=== PATIENT | female | born 1960 | race African-American/Black ===

== ENCOUNTER 2019-04-12 05:00 | Inpatient (IN) ==
[2019-04-12] MEDS ORDERED: LACTATED RINGERS 1,000 ML IV ONE (06:25)
[2019-04-12 06:40] LABS: Basophils % 0.3 % (0.0-0.8); Eosinophils % 0.1 % (0.00-10.9); Hemoglobin 9.7 GM/DL (12.0-16.0); Immature Granulocytes % 0.3 %; Immature Granulocytes Absolute 0.03 #; Lymphocytes # 3.8 10*3/uL (1.4-4.0); Mean Corpuscular HGB Conc 34.6 GM/DL (32-36); Mean Corpuscular Volume 88.1 FL (87-102); Mean Platelet Volume 11.6 FL (9.6-12.0); NRBC # 0.02 10*3/uL; Neutrophils % 51.3 % (38.7-73.9); Platelet Count 190 T/CUMM (130-400); Red Blood Count 3.18 MC/CUMM (3.8-5.5); Red Cell Distribution Width 14.1 % (9.3-17.3); White Blood Count 8.8 T/CUMM (4-12)
[2019-04-12 06:59] LABS: Albumin 1.9 G/DL (3.4-5.0); Bilirubin,Total 0.8 MG/DL (0.2-1.0); Calcium 6.3 MG/DL (8.5-10.1); Osmolality,Calculated 258.8 MOS/KG (273-304); Total Protein 6.2 G/DL (6.4-8.3)
[2019-04-12] MEDS ORDERED: POTASSIUM CHLORIDE 20 MEQ/15 ML UDCUP PO ONE ×2 (07:13→09:30)
[2019-04-12 07:16] LABS: Apearance,Urine Slightly Hazy (Clear); Bacteria,Urine Occasional /HPF (Few); Bilirubin,Urine Negative (Negative); Blood, Urine Negative (Negative); Glucose,Urine (UA) Negative (Negative); Hyaline Casts,Urine 1 /LPF (0-3); Ketones,Urine 5 mg/dL (Negative); Nitrite,Urine Negative (Negative); Protein,Urine Negative; RBC,Urine 2 /HPF (0-4); Urine Color Dark yellow (Yellow); Urine Specific Gravity 1.014 (1.001-1.035); Urine Urobilinogen < 2.0 EU/DL (0.2-1.0); WBC,Urine <1 /HPF (0-6)
[2019-04-12] MEDS ORDERED: ONDANSETRON 4 MG/2 ML VIAL IV PRN (08:56)
[2019-04-12] MEDS ORDERED: ACETAMINOPHEN 325 MG TABLET PO PRN (08:56)
[2019-04-12] MEDS ORDERED: MAGNESIUM SULF RIDER 2 GM in PREMIX 1 EACH IV PRN (09:29)
[2019-04-12] MEDS ORDERED: MAGNESIUM SULF RIDER 4 GM in PREMIX 1 EACH IV PRN (09:29)
[2019-04-12] MEDS ORDERED: POTASSIUM CHLORIDE INJ 40 MEQ in LACTATED RINGERS 1,000 ML IV SCH (09:30)
[2019-04-12] MEDS: PANTOPRAZOLE 40 MG TABLET PO SCH (09:40)
[2019-04-12] MEDS: ENOXAPARIN 30 MG/0.3 ML SYRINGE SUBCUT SCH (09:40)
[2019-04-12] MEDS: DOCUSATE SODIUM 100 MG CAPSULE PO SCH ×2 (09:40→20:42)
[2019-04-12 09:45] LABS: Calcium 6.5 MG/DL (8.5-10.1); Osmolality,Calculated 262.5 MOS/KG (273-304)
[2019-04-12] MEDS ORDERED: MAGNESIUM SULF IV ONE (10:00)
[2019-04-12] MEDS ORDERED: SODIUM CHLORIDE 0.9% IV ONE (10:00)
[2019-04-12] MEDS ORDERED: NOREPINEPHRINE 4 MG/4 ML VIAL IV ONE (10:39)
[2019-04-12] MEDS: NOREPINEPHRINE 8 MG in SODIUM CHLORIDE 0.9% 242 ML IV PRN (10:45)
[2019-04-12] MEDS: MORPHINE 4 MG/1 ML VIAL IV PRN (11:20)
[2019-04-12] MEDS ORDERED: SODIUM CHLORIDE 0.9% 1,650 ML IV ONE (11:26)
[2019-04-12] MEDS: POTASSIUM CHLORIDE 20 MEQ/15 ML UDCUP PER TUBE PRN ×3 (12:00→22:24)
[2019-04-12] MEDS: LEVOFLOXACIN INJ 500 MG in PREMIX 1 EACH IV SCH (12:01)
[2019-04-12] MEDS: PIPERACILLIN/TAZOBACTAM 3,375 MG in SODIUM CHLORIDE 0.9% 100 ML IV SCH ×2 (13:07→19:42)
[2019-04-12] MEDS: VANCOMYCIN INJ 750 MG in SODIUM CHLORIDE 0.9% 250 ML IV SCH (13:41)
[2019-04-12] MEDS ORDERED: DEXAMETHASONE 10 MG/1 ML VIAL IV ONE (13:43)
[2019-04-12] MEDS ORDERED: LORazepam 0.5 MG TABLET PO PRN (13:45)
[2019-04-12] MEDS ORDERED: DEXAMETHASONE INJ 10 MG in SODIUM CHLORIDE 0.9% 50 ML IV ONE (14:00)
[2019-04-12 14:48] LABS: Free T4 (Free Thyroxine) < 0.20 NG/DL (0.76-1.46)
[2019-04-12 15:04] LABS: Osmolality,Calculated 266.2 MOS/KG (273-304)
[2019-04-12] MEDS: GABAPENTIN 100 MG CAPSULE PO SCH ×2 (15:14→20:42)
[2019-04-12] MEDS: LACTATED RINGERS 1,000 ML IV SCH (17:13)
[2019-04-12] MEDS: traZODone 50 MG TABLET PO SCH (20:42)
[2019-04-12] MEDS: DOCUSATE/SENNA 50-8.6 MG TABLET PO SCH (20:42)
[2019-04-12] MEDS: LATANOPROST 0.005% OPH SOLN 2.5 ML BOTTLE LEFT EYE SCH (20:43)
[2019-04-12] MEDS: MAGNESIUM OXIDE 400 MG TABLET PO SCH (20:43)
[2019-04-12 21:44] LABS: Calcium 6.5 MG/DL (8.5-10.1); Osmolality,Calculated 268.5 MOS/KG (273-304)
[2019-04-13] MEDS: VANCOMYCIN INJ 750 MG in SODIUM CHLORIDE 0.9% 250 ML IV SCH ×2 (01:28→12:35)
[2019-04-13] MEDS: NOREPINEPHRINE 8 MG in SODIUM CHLORIDE 0.9% 242 ML IV PRN ×2 (01:29→07:41)
[2019-04-13] MEDS: LACTATED RINGERS 1,000 ML IV SCH ×2 (01:29→09:30)
[2019-04-13] MEDS: POTASSIUM CHLORIDE 20 MEQ/15 ML UDCUP PER TUBE PRN ×2 (01:30→04:09)
[2019-04-13] MEDS: PIPERACILLIN/TAZOBACTAM 3,375 MG in SODIUM CHLORIDE 0.9% 100 ML IV SCH ×2 (03:28→12:36)
[2019-04-13 04:31] LABS: Basophils # 0.1 10*3/uL (0.0-0.2); Basophils % 0.4 % (0.0-0.8); Hematocrit 27.4 VOL% (35.7-47.0); Hemoglobin 9.3 GM/DL (12.0-16.0); Immature Granulocytes % 0.6 %; Immature Granulocytes Absolute 0.09 #; Lymphocytes # 2.5 10*3/uL (1.4-4.0); Lymphocytes % 15.5 % (21.3-54.2); Mean Corpuscular HGB Conc 33.9 GM/DL (32-36); Mean Corpuscular Volume 90.7 FL (87-102); Mean Platelet Volume 11.3 FL (9.6-12.0); Monocytes % 2.3 % (1.7-12.7); NRBC # 0.02 10*3/uL; Neutrophils % 81.2 % (38.7-73.9); Platelet Count 189 T/CUMM (130-400); Red Blood Count 3.02 MC/CUMM (3.8-5.5); Red Cell Distribution Width 14.7 % (9.3-17.3); White Blood Count 16.2 T/CUMM (4-12)
[2019-04-13 07:21] LABS: Calcium 6.8 MG/DL (8.5-10.1); Osmolality,Calculated 270.5 MOS/KG (273-304)
[2019-04-13] MEDS: ENOXAPARIN 30 MG/0.3 ML SYRINGE SUBCUT SCH (08:50)
[2019-04-13] MEDS: NICOTINE 14 MG/24 HR PATCH TRANSDERM SCH (08:55)
[2019-04-13] MEDS: MAGNESIUM OXIDE 400 MG TABLET PO SCH (08:55)
[2019-04-13] MEDS: DOCUSATE SODIUM 100 MG CAPSULE PO SCH ×2 (08:56→21:35)
[2019-04-13] MEDS: PANTOPRAZOLE 40 MG TABLET PO SCH (08:56)
[2019-04-13] MEDS: GABAPENTIN 100 MG CAPSULE PO SCH ×3 (08:56→21:34)
[2019-04-13] MEDS: POLYETHYLENE GLYCOL POWDER 17 GM PACK PO SCH (08:58)
[2019-04-13] MEDS ORDERED: FERROUS SULFATE 325 MG TABLET PO SCH (09:00)
[2019-04-13] MEDS: MORPHINE 4 MG/1 ML VIAL IV PRN ×3 (09:20→16:39)
[2019-04-13] MEDS: LEVOFLOXACIN INJ 500 MG in PREMIX 1 EACH IV SCH (11:00)
[2019-04-13] MEDS ORDERED: DEXTROSE 5% NACL 0.9% 1,000 ML IV SCH (11:30)
[2019-04-13] MEDS: HYDROmorphone 2 MG/1 ML VIAL IV PRN ×3 (13:13→21:42)
[2019-04-13] MEDS ORDERED: FUROSEMIDE 40 MG TABLET PO PRN (13:26)
[2019-04-13] MEDS: LATANOPROST 0.005% OPH SOLN 2.5 ML BOTTLE LEFT EYE SCH (21:00)
[2019-04-13] MEDS: traZODone 50 MG TABLET PO SCH (21:34)
[2019-04-13] MEDS: DOCUSATE/SENNA 50-8.6 MG TABLET PO SCH (21:35)
[2019-04-14] MEDS: HYDROmorphone 2 MG/1 ML VIAL IV PRN ×4 (07:16→21:43)
[2019-04-14] MEDS: GABAPENTIN 100 MG CAPSULE PO SCH ×3 (10:07→21:39)
[2019-04-14] MEDS: PANTOPRAZOLE 40 MG TABLET PO SCH (10:07)
[2019-04-14] MEDS: DOCUSATE SODIUM 100 MG CAPSULE PO SCH ×2 (10:08→21:38)
[2019-04-14] MEDS: POLYETHYLENE GLYCOL POWDER 17 GM PACK PO SCH (10:08)
[2019-04-14] MEDS: MORPHINE 4 MG/1 ML VIAL IV PRN (10:10)
[2019-04-14] MEDS: NICOTINE 14 MG/24 HR PATCH TRANSDERM SCH ×2 (10:15→13:32)
[2019-04-14] MEDS ORDERED: fentaNYL 50 MCG/HR PATCH TRANSDERM SCH (12:00)
[2019-04-14] MEDS: DOCUSATE/SENNA 50-8.6 MG TABLET PO SCH (21:39)
[2019-04-14] MEDS: traZODone 50 MG TABLET PO SCH (21:39)
[2019-04-14] MEDS: LATANOPROST 0.005% OPH SOLN 2.5 ML BOTTLE LEFT EYE SCH (21:39)
[2019-04-15] MEDS: HYDROmorphone 2 MG/1 ML VIAL IV PRN ×3 (03:18→09:10)
[2019-04-15] MEDS: DOCUSATE SODIUM 100 MG CAPSULE PO SCH (09:11)
[2019-04-15] MEDS: GABAPENTIN 100 MG CAPSULE PO SCH (09:11)
[2019-04-15] MEDS: NICOTINE 14 MG/24 HR PATCH TRANSDERM SCH (09:11)
[2019-04-15] MEDS: PANTOPRAZOLE 40 MG TABLET PO SCH (09:11)
[2019-04-15] MEDS: POLYETHYLENE GLYCOL POWDER 17 GM PACK PO SCH (09:11)
[2019-04-15] MEDS: MORPHINE 4 MG/1 ML VIAL IV PRN (09:56)
[2019-04-15 10:40] LABS: Apearance,Urine CLEAR (Clear); Bilirubin,Urine Negative (Negative); Blood, Urine Negative (Negative); Glucose,Urine (UA) Negative (Negative); Hyaline Casts,Urine 1 /LPF (0-3); Ketones,Urine 5 mg/dL (Negative); Mucus,Urine Occasional /LPF (Occasional); Nitrite,Urine Negative (Negative); Protein,Urine 30 MG/DL; RBC,Urine 4 /HPF (0-4); Squamous Epithelial Cell,Urine Occasional /HPF (0-10); Urine Specific Gravity 1.024 (1.001-1.035); Urine Urobilinogen < 2.0 EU/DL (0.2-1.0); WBC,Urine 2 /HPF (0-6)
[2019-04-15 10:42] LABS: Urine Color Dark yellow (Yellow)
[2019-04-15] MEDS ORDERED: HEPARIN LOCK FLUSH 500 UNIT/5 ML SYRINGE IV ONE ×2 (11:05→11:06)
[2019-04-15 11:32] VITALS: BP 94/66
[2019-04-15] MEDS ORDERED: TAMSULOSIN 0.4 MG CAPSULE PO SCH (21:00)
== END 2019-04-15 14:16 | disposition hospice, home (50) | DRG 193 ==
LOC: EDBD → EDUNIT# → N.ED 05:00 → SUATTDRO 08:31 → N.EDINP 08:31 → N.ICU 08:56 → N.4E 04-13 14:33
PROVIDERS: ADMIT Hospitalist; ATTEND Hospitalist